=== PATIENT | male | born 1985 | race African-American/Black ===

== ENCOUNTER 2016-05-12 10:53 | Emergency (ER) | payer OTHER ==
[~2016-05-12] VITALS: Ht 175.3 cm; Wt 77.1 kg
[~2016-05-12 10:53] MED LIST: FLEXERIL PO; MEDROL DOSPAK21 TAB PO; TESSALON PERLE100 MG PO; ZPAK PO
[2016-05-12] MEDS ORDERED: BACTRIM DS TAB1 EACH PO (11:06)
[2016-05-12] MEDS ORDERED: VENTOLIN HFA 1818 GM INH (11:06)
[2016-05-12] MEDS ORDERED: FLONASE 0.05%50 MCG NASAL (11:06)
[2016-05-12] MEDS ORDERED: PROMETHAZINE/C118 ML PO (11:06)
[2016-05-12] MEDS ORDERED: GUAIFEN-CODEIN120 ML PO (12:43)
[2016-05-12] MEDS ORDERED: PREDNISONE 20 M20 MG PO (12:45)
[2016-05-12 12:57] VITALS: BP 148/90
== END 2016-05-12 12:58 | disposition home or self-care (01) ==
LOC: ER 10:53
DX: J06.9 Acute upper respiratory infection, unspecified (principal); F17.210 Nicotine dependence, cigarettes, uncomplicated; F10.99 Alcohol use, unspecified with unspecified alcohol-induced disorder